=== PATIENT | male | born 1955 | race Caucasian/White ===

== ENCOUNTER 2018-04-08 07:51 | Emergency (ER) | payer BC, MEDICAID ==
[2018-04-08] MEDS ORDERED: NS 0.9% 1000 ML* 1,000 ML IV ONE (08:25)
--- NOTE | 2018-04-08 08:27 | ED ---
GI/ HPI - HPI Summary HPI Summary: Patient is a 63 y/o M presenting to ED with complaints of diarrhea and abdominal cramps onsetting two days ago. He states that he began to experience abdominal cramping two days ago at 0200. Three hours later, he had first episode of diarrhea. Last night, he began to have episodes of stool with bright red blood. He reports having x2 episodes of bowel movements consisting of "nothing but blood" this morning. Patient notes feeling fatigued at this point. He denies Hx of rectal bleeds, never had colonoscopy. Patient is not on blood thinners, notes he takes excedrin 1-3 times a month for migraines. PSHx for inguinal hernia 25 years ago, FMHx of prostate cancer in father. Patient smokes cigarettes, notes occasional alc usage, denies substance usage. On triage, pain is denied, nothing is noted to aggravate/alleviate Sx. Home medications and allergies are reviewed. - History of Current Complaint Chief Complaint: EDGIBleed Time Seen by Provider: 04/08/18 08:08 Stated Complaint: ABD PAIN/RECTAL BLEEDING Hx Obtained From: Patient Onset/Duration: Started Days Ago - two days ago diarrhea and abdominal cramps onset, blood in stool onset last night, Still Present Timing: Constant, Lasting Days - two days ago diarrhea and abdominal cramps onset, blood in stool onset last night Current Severity: None - pain denied Pain Intensity: 0 Associated Signs and Symptoms: Positive: Bright Red Blood w/Stool, Diarrhea, Other: - abdominal cramping, fatigue Aggravating Factor(s): Nothing Alleviating Factor(s): Nothing - Allergy/Home Medications Allergies/Adverse Reactions: Allergies Allergy/AdvReac Type Severity Reaction Status Date / Time No Known Allergies Allergy Verified 04/08/18 07:56 PMH/Surg Hx/FS Hx/Imm Hx Sensory History: Denies: Hx Legally Blind, Hx Deafness Opthamlomology History: Denies: Hx Legally Blind EENT History: Denies: Hx Deafness Neurological History: Reports: Hx Migraine - Surgical History Surgery Procedure, Year, and Place: inguinal hernia repair 25 years ago - Immunization History Date of Influenza Vaccine: 2018 Immunizations Up to Date: Yes Infectious Disease History: No Infectious Disease History: Denies: Traveled Outside the [place] in Last 30 Days - Family History Known Family History: Positive: Other - FMHx of prostate cancer in father - Social History Alcohol Use: Rare Substance Use Type: Reports: None Smoking Status (MU): Heavy Every Day Tobacco Smoker Review of Systems Positive: Fatigue Positive: Diarrhea, Other - abdominal cramping Positive: other - blood with stool All Other Systems Reviewed And Are Negative: Yes Physical Exam - Summary Physical Exam Summary: VITAL SIGNS: Reviewed. GENERAL: Patient is a well-developed and nourished male who is lying comfortable in the stretcher. Patient is not in any acute respiratory distress. HEAD AND FACE: No signs of trauma. No ecchymosis, hematomas or skull depressions. No sinus tenderness. EYES: PERRLA, EOMI x 2, No injected conjunctiva, no nystagmus. EARS: Hearing grossly intact. Ear canals and tympanic membranes are within normal limits. MOUTH: Oropharynx within normal limits. NECK: Supple, trachea is midline, no adenopathy, no JVD, no carotid bruit, no c- spine tenderness, neck with full ROM. CHEST: Symmetric, no tenderness at palpation LUNGS: Clear to auscultation bilaterally. No wheezing or crackles. CVS: Regular rate and rhythm, S1 and S2 present, no murmurs or gallops appreciated. ABDOMEN: Soft, non-tender. No signs of distention. No rebound no guarding, and no masses palpated. Bowel sounds are normal. RECTAL EXAM: no melena, no bright red blood in rectum. EXTREMITIES: FROM in all major joints, no edema, no cyanosis or clubbing. NEURO: Alert and oriented x 3. No acute neurological deficits. Speech is normal and follows commands. SKIN: Dry and warm Triage Information Reviewed: Yes Vital Signs On Initial Exam: Initial Vitals Temp Pulse Resp BP Pulse Ox 98.9 F 115 16 133/84 98 04/08/18 07:52 04/08/18 07:52 04/08/18 07:52 04/08/18 07:52 04/08/18 07:52 Vital Signs Reviewed: Yes Diagnostics - Vital Signs Vital Signs Temp Pulse Resp BP Pulse Ox 04/08/18 07:52 98.9 F 115 16 133/84 98 - Laboratory Result Diagrams: 04/08/18 08:35 04/08/18 08:35 Lab Statement: Any lab studies that have been ordered have been reviewed, and results considered in the medical decision making process. - Radiology cxr Radiology Interpretation Completed By: Radiologist Summary of Radiographic Findings: IMPRESSION: HYPERINFLATION. NO ACTIVE CARDIOPULMONARY DISEASE. THIS REPORT WAS REVIEWED BY ED PHYSICIAN. - EKG 0902 Cardiac Rate: NL - RATE OF 96 BPM EKG Rhythm: Sinus Rhythm ST Segment: Normal Summary of EKG Findings: EKG showed sinus rhythm with rate of 96 BPM, no ST elevation, Q waves in 2,3 and AVF. Re-Evaluation - Re-Evaluation First Eval Re-Evaluation Time: 08:11 Comment: Discussed all the findings and test results with the patient. The patient will be discharged home with follow-up with Dr. Wynne who is the GI readiness paraprofessional. The patient was also strongly recommended that if he continues to have more GI bleed, signs of shortness of breath or tachycardia the patient should return immediately to the emergency room for further workup and management. The patient understands and agrees. All questions were answered at patient satisfaction. There were no further complaints or concerns. Lung exam before discharge: CTA B/L. Good air exchange. No wheezing or crackles heard. CVS : S1 and S2 present. No murmurs appreciated. Patient is alert and oriented x 3. Patient is hemodynamically stable. GIGU Course/Dx - Course Assessment/Plan: Patient is a 63 y/o M presenting to ED with complaints of diarrhea and abdominal cramps onsetting two days ago. He states that he began to experience abdominal cramping two days ago at 0200. Three hours later, he had first episode of diarrhea. Last night, he began to have episodes of stool with bright red blood. He reports having x2 episodes of bowel movements consisting of "nothing but blood" this morning. Patient notes feeling fatigued at this point. He denies Hx of rectal bleeds, never had colonoscopy. Patient is not on blood thinners, notes he takes excedrin 1-3 times a month for migraines. PSHx for inguinal hernia 25 years ago, FMHx of prostate cancer in father. Patient smokes cigarettes, notes occasional alc usage, denies substance usage. On triage, pain is denied, nothing is noted to aggravate/alleviate Sx. Home medications and allergies are reviewed. Blood work without any significant abnormality except for WBCs of 12.8, hemoglobin and hematocrit are within normal limits. Total bili is 1.6 and CRP is 15.2. Chest x-ray shows no acute pathology. Guaiac is positive. Since the patient is hemodynamically stable and his H&H is normal and there is no further bleeding and will discharge the patient home with follow-up with GI. At this point cannot rule out his bleeding from the external hemorrhoids or internal hemorrhoids. However since the patient has not had any type of colonoscopy I believe that the patient would greatly benefit from a colonoscopy this time. Therefore the patient will be discharged home with follow-up with Dr. Wynne who is the GI readiness paraprofessional. The patient was also strongly recommended that if he continues to have more GI bleed , signs of shortness of breath or tachycardia the patient should return immediately to the emergency room for further workup and management. The patient understands and agrees. I discussed all the findings and test results with the patient. Patient was instructed to return to the emergency room immediately if any of the symptoms return or worsens. Plan of care was discussed with the patient and understands and agrees. All questions were answered at patient satisfaction. There were no further complaints or concerns. Lung exam before discharge: CTA B/L. Good air exchange. No wheezing or crackles heard. CVS: S1 and S2 present. No murmurs appreciated. Patient is alert and oriented x 3. Patient is hemodynamically stable. Patient will be discharged home with follow up PCP in the next 2-3 days - Diagnoses Provider Diagnoses: GI bleed Discharge - Sign-Out/Discharge Documenting (check all that apply): Patient Departure - discharge - Discharge Plan Condition: Stable Disposition: HOME Patient Education Materials: Gastrointestinal Bleeding (ED) Referrals: Jl Brasher MD [Medical Doctor] - 3 Days Conrado Wynne MD [Medical Doctor] - 3 Days Additional Instructions: RETURN TO ED FOR ANY NEW OR WORSENING SYMPTOMS. FOLLOW UP WITH PRIMARY CARE PHYSICIAN AND [facility] IN THREE DAYS. - Attestation Statements Document Initiated by Scribe: Yes Documenting Scribe: DILLON MARIA Provider For Whom Fermin is Documenting (Include Credential): HALEIGH BIRCH MD Scribe Attestation: DILLON Miller , scribed for HALEIGH BIRCH MD on 04/08/18 at 1124. Status of Scribe Document: Ready
[2018-04-08 08:42] LABS: ABS Basophils 0 10^3/ul (0-0.2); ABS Eosinophils 0.1 10^3/ul (0-0.6); ABS Lymphocytes 2.4 10^3/ul (1.0-4.8); ABS Monocytes 1.1 10^3/ul (0-0.8); ABS Neutrophils 9.1 10^3/ul (1.5-7.7); ABS Nucleated RBC 0 10^3/ul; Eosinophil % 0.7 %; Hematocrit 49 % (42-52); Hemoglobin 16.1 g/dl (14.0-18.0); Lymphocyte % 18.9 %; Mean Corpuscular HGB Conc 33 g/dl (31-36); Mean Corpuscular Hemoglobin 28 pg (27-31); Mean Corpuscular Volume 85 fL (80-94); Mean Platelet Volume 7.5 fL (7.4-10.4); Nucleated Red Blood Cells % 0.1; Platelet Count 237 10^3/ul (150-450); Red Blood Count 5.71 10^6/ul (4.00-5.40); Red Cell Distribution Width 14 % (10.5-15); White Blood Count 12.8 10^3/ul (3.5-10.8)
[2018-04-08 09:01] LABS: ALT 35 U/L (7-52); AST 22 U/L (13-39); Albumin 4.2 g/dL (3.2-5.2); Albumin/Globulin Ratio 1.6 (1-3); Alkaline Phosphatase 63 U/L (34-104); Anion Gap 10 mmol/L (2-11); BUN/Creatinine Ratio 17.2 (8-20); Blood Urea Nitrogen 17 mg/dL (6-24); C Reactive Protein 15.21 mg/L (<8.01); CO2 Carbon Dioxide 26 mmol/L (22-32); Calcium 9.5 mg/dL (8.6-10.3); Chloride 103 mmol/L (101-111); EGFR Non-African American 76.6 (>60); Globulin 2.6 g/dL (2-4); Glucose 98 mg/dL (70-100); Potassium 3.7 mmol/L (3.5-5.0); Sodium 139 mmol/L (135-145); Total Protein 6.8 g/dL (6.4-8.9)
[2018-04-08 10:32] VITALS: BP 127/80
== END 2018-04-08 10:45 | disposition home or self-care (01) ==
LOC: ED 07:51
DX: K92.2 Gastrointestinal hemorrhage, unspecified (principal); I48.91 Unspecified atrial fibrillation; R19.7 Diarrhea, unspecified; R53.83 Other fatigue; F17.210 Nicotine dependence, cigarettes, uncomplicated
CPT/HCPCS: 36415; 71045; 80053; 82272; 83605; 83690; 85025; 85730; 86140; 93005; 96360; 99282